=== PATIENT | female | born 1990 | race Caucasian/White ===

== ENCOUNTER → 2016-09-14 | Day surgery (SDC) | payer OTHER ==
[~2016-09-14] VITALS: Ht 157.5 cm; Wt 90.7 kg
[~2016-09-14] MED LIST: ACET50TA PO; ACETAMINOPHEN 650 MG SUPP As Ordered ONE; ACETAMINOPHEN 650 MG SUPP PR ONE; ADDE10CA3 PO; BUPIVACAINE HCL 0.5% 10 ML VIAL As Ordered ONE; BUPIVACAINE/EPIN 0.25% 30 ML VIAL As Ordered ONE; COLA100C5 PO; EFFE37.527 PO; GLYCOPYRROLATE INJ 0.2 MG/ML 2 ML VIAL As Ordered ONE; IBUP60TA PO; KETOROLAC 60 MG/2 ML VIAL (J1885) As Ordered ONE; LIDOCAINE 2% INJ 100 MG/5 ML SDV (FOR ANES.) As Ordered ONE; LR 1,000 ML IV ONE; LR 1,000 ML IV SCH; METHYLENE BLUE 0.5% (5MG/ML) 10 ML AMP (PROVAYBLUE)(Q9968 PER 1MG) As Ordered ONE; MIDAZOLAM INJ 2 MG/2 ML VIAL (J2250) As Ordered ONE; MOM30SS PO; NEOSTIGMINE 1MG/ML 5 ML SYRINGE (J2710) As Ordered ONE; NS 1,000 ML IV SCH; NS 800 ML IV ONE; ONDANSETRON 4MG/2ML VIAL (J2405) As Ordered ONE; ONDANSETRON 4MG/2ML VIAL (J2405) IV PRN; PROPOFOL 200 MG/20 ML VIAL As Ordered ONE; ROCURONIUM BROMIDE 50 MG/5 ML VIAL/SYRINGE As Ordered ONE; VITAPRTA PO; dexameTHASONE 4 MG/ML 1ML VIAL (J1100) As Ordered ONE; fentaNYL 100 MCG/2 ML INJECTION (J3010) IV PRN; fentaNYL 250 MCG/5 ML INJECTION (J3010) As Ordered ONE
[2016-09-14 07:01] LABS: MEAN CORPUSCULAR HEMOGLOBIN 29.4 pg (27.0-33.0); MEAN CORPUSCULAR HGB CONC 33.2 g/dl (32.0-36.5); MEAN CORPUSCULAR VOLUME 88.4 fl (80.0-96.0); RED CELL DISTRIBUTION WIDTH 13.2 % (11.5-14.5); WHITE BLOOD COUNT 6.4 K/mm3 (4.0-10.0)
[2016-09-14 07:31] LABS: ANION GAP 9 MEQ/L (8-16); BLOOD UREA NITROGEN 14 MG/DL (7-18); CALCIUM LEVEL 8.7 MG/DL (8.5-10.1); CARBON DIOXIDE LEVEL 25 MEQ/L (21-32); CHLORIDE LEVEL 105 MEQ/L (98-107); CREATININE FOR GFR 0.78 MG/DL (0.55-1.02); GLOMERULAR FILTRATION RATE > 60.0 (>60); GLUCOSE, FASTING 89 MG/DL (70-105); HCG, SERUM QUANTITATIVE < 1.0 MIU/ML; POTASSIUM SERUM 4.2 MEQ/L (3.5-5.1); SODIUM LEVEL 139 MEQ/L (136-145)
[2016-09-14 12:15] VITALS: BP 122/68
--- NOTE | 2016-09-19 06:07 | RO ---
DATE OF PROCEDURE: 09/14/2016 PREOPERATIVE DIAGNOSIS: Satisfied parity. POSTOPERATIVE DIAGNOSIS: Satisfied parity. OPERATION PROPOSED: Bilateral salpingectomy. OPERATION PERFORMED: Bilateral salpingectomy. SURGEON: Dr. Esequiel Tse HEADWAITRESS: ANESTHESIA: General, plus local anesthetic for intraperitoneal procedures. ESTIMATED BLOOD LOSS: Less than 20 mL. DESCRIPTION OF PROCEDURE: After adequate time-out, prepped and draped, in lithotomy position, sequential on board, antibiotics not needed, acetaminophen suppository 1300 mg per rectum. Weighted speculum in vagina. Single-tooth tenaculum anterior lip of the cervix. Uterus sounded to depth of 8.5 cm. Uterine elevator was placed in the cervical canal. There was significant degree of cervical uterine prolapse to the introitus. Reprepping and draping, a small subumbilical incision was made. Veress needle was applied. 3.8 liters of CO2 to flow rate of 14 to a pressure of 15. Visiport was used. Direct entry into the abdomen. No evidence of perforation, hemorrhage or bleeding. Panoramic review right upper quadrant was normal. Gallbladder was normal. Liver edge was smooth. Right lower quadrant was normal. Right round ligament was normal. Appendiceal area was normal. Uterus is midline, mid position, normal in size and texture. Right ovary was normal. Right tube was normal. Left tube and ovary were normal. Cul-de-sac was clear. The left upper quadrant pain was normal. A 5 mm port was placed on the right side and a 5 mL placed on the left side under direct vision. With that done, we elevated the uterus, elevated the right tube. Using the Harmonic scalpel, we excised off the right tube to the cornual end. This was then extracted through one of the 5 mm ports and sent off to pathology. Subsequently, on the opposite side, we elevated the tube with the Harmonic scalpel, excised off the tube including the fimbriated end to the cornual area and that was taken out through the 5 mm port. Review of the two areas showed no evidence of active bleeding. 250 mL of normal saline were left in the abdomen, deflating to 4 mm pressure, removed the 5 mm port on the right side, 5 mm port on the left side. Then, under direct vision, the mainstem port was removed. A deep stitch was placed in the umbilical area, superficial stitches. Marcaine 0.25%, 8 mL and Steri-Strips. Then, we went below, removed the Salcedo catheter, removed the uterine elevator and the tenaculum, and the patient was sent to recovery in good condition.
== END | disposition home or self-care (01) ==
LOC: M SDC 06:38
PROVIDERS: ATTEND Obstetrics & Gynecology
DX: Z30.2 Encounter for sterilization (principal); F41.9 Anxiety disorder, unspecified; F32.9 Major depressive disorder, single episode, unspecified; F90.9 Attention-deficit hyperactivity disorder, unspecified type; Z72.0 Tobacco use; Z79.899 Other long term (current) drug therapy; Z87.09 Personal history of other diseases of the respiratory system
CPT/HCPCS: 36415; 58661; 80048; 84702; 85027; 88302; J1100; J1885; J2250; J2405; J2710; J3010